=== PATIENT | female | born 1990 | race Caucasian/White ===

== ENCOUNTER 2020-04-17 14:10 | Outpatient (REF) | payer BC, SELFPAY | END 2020-04-17 14:11 | disposition home or self-care (01) | LOC: HO.LNP 14:10 | PROVIDERS: Visit Provider Family Medicine | DX: Z20.822 Contact with and (suspected) exposure to COVID-19 (principal) | CPT/HCPCS: U0003 ==

== ENCOUNTER 2020-05-19 | Outpatient (REF) | payer BC, SELFPAY | END 2020-05-19 00:01 | disposition home or self-care (01) | LOC: HO.WFDLNP | PROVIDERS: Visit Provider Family Medicine | DX: Z13.89 Encounter for screening for other disorder (principal) ==

== ENCOUNTER 2020-05-20 | Outpatient (REF) | payer BC, SELFPAY | END 2020-05-20 00:01 | disposition home or self-care (01) | LOC: HO.LAB | PROVIDERS: Visit Provider Family Medicine | DX: R05 Cough (principal); Z20.822 Contact with and (suspected) exposure to COVID-19 | CPT/HCPCS: U0003 ==

== ENCOUNTER 2020-10-14 17:24 | Outpatient (REF) | payer BC, SELFPAY | END 2020-10-14 17:25 | disposition home or self-care (01) | LOC: HO.LNP 17:24 | PROVIDERS: Visit Provider Internal Medicine | DX: Z20.822 Contact with and (suspected) exposure to COVID-19 (principal) | CPT/HCPCS: U0003; U0005 ==